=== PATIENT | male | born 1935 | race American Indian/Alaskan Native ===

== ENCOUNTER 2017-04-22 13:04 | Emergency (ER) | payer MEDICARE ==
[2017-04-22 21:13] LABS: ALB/GLOB RATIO 1.3 (1.0-2.1); ALBUMIN 3.8 g/dL (3.5-5.0); ALT/SGPT 25 U/L (21-72); AST/SGOT 26 U/L (17-59); BLOOD UREA NITROGEN 23 mg/dL (9-20); CALCIUM 9.1 mg/dl (8.6-10.4); GFR AFRICAN-AMERICAN > 60; GFR NON-AFRICAN AMERICAN 58
[2017-04-22 21:17] LABS: BASO % 0.7 % (0.0-2.0); EOS # 0.2 K/uL (0.0-0.7); EOS % 3.6 % (0.0-4.0); HEMOGLOBIN 13.5 g/dL (12.0-18.0); LYMPH # 1.3 K/uL (1.0-4.3); LYMPH % 27.9 % (20.0-40.0); MEAN CELL VOLUME 84.3 fL (80.0-94.0); MEAN CORPUSCULAR HEMOGLOBIN 26.8 pg (27.0-31.0); MEAN CORPUSCULAR HGB CONC 31.8 g/dL (33.0-37.0); MEAN PLATELET VOLUME 10.7 fL (7.2-11.7); MONO # 0.5 K/uL (0.0-0.8); MONO % 9.9 % (0.0-10.0); NEUT # 2.8 K/uL (1.8-7.0); NEUT % 57.9 % (50.0-75.0); RBC 5.04 Mil/uL (4.40-5.90); RED CELL DISTRIBUTION WIDTH 15.4 % (11.5-14.5); WHITE BLOOD COUNT 4.8 K/uL (4.8-10.8)
[2017-04-22 23:36] LABS: URINE BILIRUBIN NEGATIVE (NEGATIVE); URINE BLOOD NEGATIVE (NEGATIVE); URINE CLARITY Clear (Clear); URINE COLOR Yellow (YELLOW); URINE GLUCOSE (UA) NORMAL (Normal); URINE LEUKOCYTE ESTERASE NEG Leu/uL (Negative); URINE NITRATE NEGATIVE (NEGATIVE); URINE PROTEIN NEGATIVE (NEGATIVE); URINE UROBILINOGEN NORMAL mg/dL (0.2-1.0)
== END 2017-04-22 19:30 | disposition home or self-care (01) ==
LOC: C.ER 13:04
DX: M54.5 Low back pain (principal)

== ENCOUNTER 2017-10-25 07:28 | Day surgery (SDC) | payer MEDICARE ==
[2017-10-18 09:20] VITALS: BMI 28.2
[2017-10-25] MEDS ORDERED: ceFAZolin IV 1 gm in Dextrose 0 GM/0 ML BAG IVPB ONE (10:22)
[2017-10-25] MEDS ORDERED: Bupivacaine HCl 0.5% PF (10 ml) Inj ONE (10:23)
[2017-10-25] MEDS ORDERED: Lidocaine 2% w Epi 1:100,000 Inj IJ ONE (10:23)
[2017-10-25] MEDS ORDERED: Lactated Ringer's 1,000 ML IV ONE ×3 (10:25→12:16)
[2017-10-25] MEDS ORDERED: Propofol 10 mg/ml Inj (20 ML) ONE (10:39)
[2017-10-25] MEDS: ceFAZolin IV 2 gm in Dextrose 2 GM/50 ML BAG IVPB ONE ×2 (10:40→11:40)
[2017-10-25] MEDS ORDERED: Succinylcholine Chloride 20 mg/ml Syr (5 ml) IV ONE (11:41)
[2017-10-25] MEDS ORDERED: ePHEDrine 50 mg/ml Inj ONE (11:42)
[2017-10-25] MEDS ORDERED: Rocuronium 10 mg/ml (5 ml) ONE (11:42)
[2017-10-25] MEDS ORDERED: Neostigmine Methylsulfate 3mg/3ml Syringe IV ONE (12:04)
[2017-10-25] MEDS ORDERED: HYDROmorphone 0.5 mg/0.5 ml ISec IVP PRN (12:20)
[2017-10-25] MEDS ORDERED: Oxycodone/Acetaminophen 5/325 mg Tab PO PRN (12:22)
--- NOTE | 2017-10-25 12:25 | OP ---
PROCEDURE DATE: 10/25/2017 PREOPERATIVE DIAGNOSIS: Right inguinal hernia. POSTOPERATIVE DIAGNOSIS: Right inguinal hernia. PROCEDURE CARRIED OUT: Repair of right inguinal hernia with PHS Prolene Hernia System. SURGEON: Jose Smyth Jr., MD. DRAFTER ELECTROMECHANICAL: Dr. Josafat Melgar. TYPE OF ANESTHESIA: General anesthesia. ANESTHESIA ADMINISTERED BY: Dr. Cabrera. INDICATIONS: The patient is an older man with a variety of medical problems, who presents with an increasingly symptomatic right inguinal hernia. OPERATIVE FINDINGS: 1. This is primarily a very large indirect inguinal hernia. 2. A PHS Prolene Hernia System was used. DESCRIPTION OF PROCEDURE: The patient was given general anesthesia, intravenous antibiotics, Venodyne boots were applied. Incision was made in the groin exposing the external oblique. The cord and its contents were identified. The sac which was quite large had been dissected away. This was then inverted back into the peritoneal cavity and the PHS Prolene Hernia System was placed in the preperitoneal space. A slit was made. The edges were grasped. It was unfurled appropriately and then it was sutured and stapled into position. The external oblique was closed. The skin was closed with subcuticular closure. Marcaine had been injected right after the beginning of the procedure. Blood loss of the procedure was less than 25 mL. Operation carried out is repair of right indirect right inguinal hernia with PHS Prolene Hernia System. Blood loss is less than 20 mL. Jose Smyth Jr., MD cc: Shauna House MD
--- NOTE | 2017-10-25 12:28 | PCM.SURG1 ---
Surgeon's Initial Post Op Note - Surgeon's Notes Surgeon: Dr. Smyth Lead Generation Representative: Josafat Melgar PGY2 Type of Anesthesia: General Endo Pre-Operative Diagnosis: R inguinal hernia Operative Findings: Large hernia R Post-Operative Diagnosis: Same Operation Performed: R open inguinal hernia repair Specimen/Specimens Removed: None Estimated Blood Loss: EBL {In ML}: 10 Blood Products Given: N/A Drains Used: No Drains Post-Op Condition: Good Date of Surgery/Procedure: 10/25/17 Time of Surgery/Procedure: 12:29
[2017-10-25] MEDS ORDERED: Lactated Ringer's 1,000 ML IV SCH (12:30)
[2017-10-25 14:10] VITALS: TEMP 97.8; O2SAT 96
[2017-10-25 14:53] VITALS: BP 123/62; PULSE 68; RESP 20
== END 2017-10-25 14:45 | disposition home or self-care (01) ==
LOC: C.SDS 07:28
PROVIDERS: ATTEND Surgery Vascular Surgery
DX: K40.90 Unilateral inguinal hernia, without obstruction or gangrene, not specified as recurrent (principal); I10 Essential (primary) hypertension; E11.9 Type 2 diabetes mellitus without complications; Z79.84 Long term (current) use of oral hypoglycemic drugs; Z79.899 Other long term (current) drug therapy
CPT/HCPCS: 49505; 82948; J0690; J1170; J2704; J2710; J3010; J7120

== ENCOUNTER 2018-02-08 21:15 | Emergency (ER) | payer MEDICARE ==
[2018-02-08 21:15] VITALS: BMI 28.2
[2018-02-08 21:32] VITALS: BP 153/100; PULSE 81; RESP 18; TEMP 98.2; O2SAT 99
--- NOTE | 2018-02-08 21:53 | C.PDOC ---
History Of Present Illness 82 year old male presents to ED with complaints of redness and swelling to right side of head for 3 days. He states he fell one month ago hitting his right forehead, near area of swelling. He did not get evaluated at that time, and denies any headache, dizziness, vomiting, vision changes. He denies any pain to site, but states it does feel slightly itchy has been having dry skin. Time Seen by Provider: 02/08/18 21:47 Chief Complaint (Nursing): Abnormal Skin Integrity History Per: Patient History/Exam Limitations: no limitations Onset/Duration Of Symptoms: Days (3) Past Medical History Reviewed: Historical Data, Nursing Documentation, Vital Signs Vital Signs: Last Vital Signs Temp 98.2 F 02/08/18 21:27 Pulse 81 02/08/18 21:27 Resp 18 02/08/18 21:27 BP 153/100 H 02/08/18 21:27 Pulse Ox 99 02/08/18 21:53 - Medical History PMH: Arthritis, Benign Prostatic Hyperplasia, Diabetes, Fractures (RIGHT WRIST- CASTED ONLY), HTN, Hypercholesterolemia, Kidney Stones (SURGERY DONE), Chronic Kidney Disease - [facility] Procedures CLOSURE SKIN & SUBCUTANEOUS NEC (12/16/02) OPEN BIOPSY OF THYROID GLAND (12/16/02) PART THYROIDECTOMY NEC (12/16/02) REMOV INTRALUM PHARYN FB (07/25/13) Family History: States: Unknown Family Hx, Hypertension - Social History Hx Tobacco Use: No Hx Alcohol Use: No Hx Substance Use: No - Immunization History Hx Tetanus Toxoid Vaccination: No Hx Influenza Vaccination: No Hx Pneumococcal Vaccination: No Review Of Systems Except As Marked, All Systems Reviewed And Found Negative. Skin: Positive for: Other (redness) Physical Exam - Physical Exam Appears: Well, Non-toxic, No Acute Distress Skin: Warm, Dry, Other (right lateral face near eyebrow with mild erythema and swelling, no tenderness, no vesicles, no ecchymosis; dry patches of skin around nasiolabial folds, neck and arms) Head: Atraumatic, Normacephalic Eye(s): bilateral: Normal Inspection, EOMI Nose: Normal Oral Mucosa: Moist Lips: Normal Appearing Neck: Normal ROM Cardiovascular: Rhythm Regular Respiratory: Normal Breath Sounds, No Wheezing Extremity: Bilateral: Atraumatic, Normal ROM Neurological/Psych: Oriented x3, Normal Speech, Normal Cranial Nerves, No Cerebellar Signs, Normal Motor, Normal Sensation Gait: Steady ED Course And Treatment O2 Sat by Pulse Oximetry: 99 Medical Decision Making Medical Decision Making: Patient is afebrile appears well nontoxic and in no distress. He is alert and oriented and no neuro deficits. Skin exam shows erythema and mild inflammation, no palpable mass, no abscess, no vesicles. Will treat with Bactrim for early cellulitis. Advise follow up with PMD in 2 days. Disposition Counseled Patient/Family Regarding: Diagnosis, Need For Followup, Rx Given - Disposition Referrals: Suraj House MD [Primary Care Provider] - Disposition: HOME/ ROUTINE Disposition Time: 22:03 Condition: GOOD Additional Instructions: take antibiotic twice a day follow up with your doctor in 2 days to check area return to ER if you develop fever, pain, redness, swelling or area spreads Prescriptions: Sulfamethoxazole/Trimethoprim [Bactrim DS 800 mg-160 mg] 1 tab PO BID #14 tab Instructions: Cellulitis (Skin Infection), Adult (DC) Forms: [employer] (Spanish) - POA Present On Arrival: None - Clinical Impression Clinical Impression: Cellulitis
[2018-02-08] MEDS ORDERED: Tmp-Smz 800 mg-160 mg DS Tab PO SCH (22:00)
[2018-02-08] MEDS ORDERED: Tmp-Smz 800 mg-160 mg DS Tab ONE (22:06)
== END 2018-02-08 22:24 | disposition home or self-care (01) ==
LOC: SUPCPDRO 21:15 → C.ER 21:15
DX: L03.211 Cellulitis of face (principal)

== ENCOUNTER 2018-02-10 12:02 | Emergency (ER) | payer MEDICARE ==
[2018-02-10 12:02] VITALS: BMI 28.2
[2018-02-10 12:14] VITALS: RESP 16; O2SAT 98
--- NOTE | 2018-02-10 13:37 | CT ---
PROCEDURE: CT ORBITS WITHOUT CONTRAST. HISTORY: s/p fall - r/o right orbital fx COMPARISON: None available. TECHNIQUE: Axial CT images of the orbits were obtained. Coronal and sagittal reformats were generated. Radiation dose: Total exam DLP = 675.64 mGy-cm. This CT exam was performed using one or more of the following dose reduction techniques: Automated exposure control, adjustment of the mA and/or kV according to patient size, and/or use of iterative reconstruction technique. FINDINGS: RIGHT ORBIT: RIGHT BONY ORBIT: Normal. RIGHT INTRAORBITAL STRUCTURES: Globe: Normal. Extraocular muscles: Normal. Post septal space: Normal. Optic Nerve: Normal. Lacrimal Apparatus: Normal. RIGHT PRESEPTAL SOFT TISSUES: [id number] right preseptal air periorbital soft tissue edema is identified predominantly laterally with both superior inferior mild edema appreciated. No retained radiodense foreign body or emphysema soft tissue changes are are identified. LEFT ORBIT: LEFT BONY ORBIT: Normal. LEFT INTRAORBITAL STRUCTURES: Globe: Normal. Extraocular muscles: Normal. Post septal space: Normal Optic Nerve: Normal. . Lacrimal Apparatus: Normal. LEFT PRESEPTAL SOFT TISSUES: Normal. OTHER: Limited heterotopic linear calcification is seen inferior to the anetroinferior maxillary ridge within anterior soft palate, favored over possible chip fracture. Clinically correlate. Incidental questionable mild lymphadenopathy in the suprahyoid neck. IMPRESSION: [id number] right periorbital soft tissue edema which is preseptal with no postseptal changes. No fracture of the bony orbit is appreciated bilaterally. Incidental heterotopic calcifications seen medially inferior to anterior inferior maxillary rage, favored over trace avulsion or chip fracture fracture. Incidental mild suprahyoid neck lymphadenopathy questioned.
[2018-02-10 14:08] VITALS: BP 122/78; PULSE 70; TEMP 98
--- NOTE | 2018-02-10 18:11 | C.PDOC ---
History Of Present Illness 82 year old male presents to the ED with c/o mild right eye swelling which progressed over the past couple weeks. Patient states he fell two weeks ago, denies LOC at the time. He was evaluated in this ED and discharged with Rx for antibiotics for cellulitis, which patient states has been resolving. He denies fever, chills and vision change. Chief Complaint (Nursing): Abnormal Skin Integrity History Per: Patient History/Exam Limitations: no limitations Onset/Duration Of Symptoms: Other (2 weeks ) Current Symptoms Are (Timing): Still Present Quality Of Symptoms: Swollen Additional History Per: Patient Past Medical History Reviewed: Historical Data, Nursing Documentation, Vital Signs Vital Signs: Last Vital Signs Temp 98.0 F 02/10/18 14:00 Pulse 70 02/10/18 14:00 Resp 16 02/10/18 14:00 BP 122/78 02/10/18 14:00 Pulse Ox 98 02/10/18 18:17 - Medical History PMH: Arthritis, Benign Prostatic Hyperplasia, Diabetes, Fractures (RIGHT WRIST- CASTED ONLY), HTN, Hypercholesterolemia, Kidney Stones (SURGERY DONE), Chronic Kidney Disease Surgical History: No Surg Hx - [facility] Procedures CLOSURE SKIN & SUBCUTANEOUS NEC (12/16/02) OPEN BIOPSY OF THYROID GLAND (12/16/02) PART THYROIDECTOMY NEC (12/16/02) REMOV INTRALUM PHARYN FB (07/25/13) Family History: States: Hypertension - Social History Hx Tobacco Use: No Hx Alcohol Use: No Hx Substance Use: No - Immunization History Hx Tetanus Toxoid Vaccination: No Hx Influenza Vaccination: No Hx Pneumococcal Vaccination: No Review Of Systems Constitutional: Negative for: Fever, Chills Eyes: Positive for: Other (mild right eye swelling ). Negative for: Vision Change Physical Exam - Physical Exam Appears: Non-toxic, No Acute Distress Skin: Normal Color, Warm, Dry Head: Other (minimal swelling and tenderness to lateral aspect of right orbital region ) Eye(s): bilateral: PERRL, EOMI Oral Mucosa: Moist Neck: Supple Chest: Symmetrical, No Deformity, No Tenderness Cardiovascular: Rhythm Regular, No Murmur Respiratory: Normal Breath Sounds, No Rales, No Rhonchi, No Wheezing Extremity: Normal ROM, Capillary Refill (less than 2 seconds ) Neurological/Psych: Oriented x3, Normal Speech, Normal Cognition ED Course And Treatment O2 Sat by Pulse Oximetry: 98 (on RA) Pulse Ox Interpretation: Normal Medical Decision Making Medical Decision Making: Impression: 82 y/o male with right eye swelling Plan: * CT Orbits/Facial * EKG * reassess and disposition Progress: CT Orbits/Facial and EKG ordered and reviewed. Disposition - Disposition Referrals: Efraín Riley, [Non-Staff] - Disposition: HOME/ ROUTINE Disposition Time: 13:40 Condition: GOOD Additional Instructions: Thank you for letting us take care of you today. The emergency medical care you received today was directed at your acute symptoms. If you were prescribed any medication, please fill it and take as directed. It may take several days for your symptoms to resolve. Return to the Emergency Department if your symptoms worsen, do not improve, or if you have any other problems. Please contact your doctor or call one of the physicians/clinics you have been referred to that are listed on the Patient Visit Information form that is included in your discharge packet. Bring any paperwork you were given at discharge with you along with any medications you are taking to your follow up visit. Our treatment cannot replace ongoing medical care by a primary care provider (PCP) outside of the emergency department. Thank you for allowing the [facility] team to be part of your care today. Continue taking the antibiotics as prescribed. Follow up with your primary doctor in 2 days for re-evaluation and further management. Instructions: [place] (DC) Forms: [employer] (Japanese) - Clinical Impression Clinical Impression: Contusion - Scribe Statement The provider has reviewed the documentation as recorded by the Scribe (Kalpana House) Provider Attestation: All medical record entries made by the Scribe were at my direction and personally dictated by me. I have reviewed the chart and agree that the record accurately reflects my personal performance of the history, physical exam, medical decision making, and the department course for this patient. I have also personally directed, reviewed, and agree with the discharge instructions and disposition.
== END 2018-02-10 14:07 | disposition home or self-care (01) ==
LOC: C.ER 12:02
DX: S05.11XA Contusion of eyeball and orbital tissues, right eye, initial encounter (principal); W19.XXXA Unspecified fall, initial encounter; E78.00 Pure hypercholesterolemia, unspecified; N40.0 Benign prostatic hyperplasia without lower urinary tract symptoms; I12.9 Hypertensive chronic kidney disease with stage 1 through stage 4 chronic kidney disease, or unspecified chronic kidney disease; N18.9 Chronic kidney disease, unspecified

== ENCOUNTER 2018-03-04 08:28 | Emergency (ER) | payer MEDICARE ==
[2018-03-04 08:28] VITALS: BMI 28.2
[2018-03-04 08:33] VITALS: BP 155/80; PULSE 74; RESP 18; TEMP 98.1; O2SAT 100
--- NOTE | 2018-03-04 08:47 | C.PDOC ---
Time Seen by Provider: 03/04/18 08:36 Chief Complaint (Nursing): Abnormal Skin Integrity History Per: Patient Onset/Duration Of Symptoms: Days (about 1 week) Current Symptoms Are (Timing): Still Present Location Of Injury: Anterior: Perineum (Penis) Quality Of Symptoms: Itching. denies: Painful Severity: Moderate Additional History Per: Prior Records Past Medical History Reviewed: Historical Data, Nursing Documentation, Vital Signs Vital Signs: Last Vital Signs Temp 98.1 F 03/04/18 08:31 Pulse 74 03/04/18 08:31 Resp 18 03/04/18 08:31 BP 155/80 H 03/04/18 08:31 Pulse Ox 100 03/04/18 08:31 - Medical History PMH: Arthritis, Benign Prostatic Hyperplasia, Diabetes, Fractures (RIGHT WRIST- CASTED ONLY), HTN, Hypercholesterolemia, Kidney Stones (SURGERY DONE), Chronic Kidney Disease - [facility] Procedures CLOSURE SKIN & SUBCUTANEOUS NEC (12/16/02) OPEN BIOPSY OF THYROID GLAND (12/16/02) PART THYROIDECTOMY NEC (12/16/02) REMOV INTRALUM PHARYN FB (07/25/13) Family History: States: Unknown Family Hx, Hypertension - Social History Hx Tobacco Use: No Hx Alcohol Use: Yes Hx Substance Use: No - Immunization History Hx Tetanus Toxoid Vaccination: No Hx Influenza Vaccination: No Hx Pneumococcal Vaccination: No Review Of Systems Except As Marked, All Systems Reviewed And Found Negative. Constitutional: Negative for: Fever, Weakness Cardiovascular: Negative for: Chest Pain Respiratory: Negative for: Shortness of Breath Gastrointestinal: Negative for: Vomiting, Abdominal Pain Genitourinary: Positive for: Rash. Negative for: Dysuria, Penile Discharge, Scrotal Pain Musculoskeletal: Negative for: Neck Pain, Back Pain Neurological: Negative for: Weakness, Numbness Physical Exam - Physical Exam Appears: Non-toxic, No Acute Distress Skin: Normal Color, Warm, Dry Head: Atraumatic, Normacephalic Eye(s): bilateral: PERRL, EOMI Neck: Normal ROM, Supple Male Genital: No Testicular Tenderness, No Testicular Swelling, No Inguinal Tenderness, No Inguinal Swelling, No Scrotal Swelling, Other (Mild erythema/ irritation under foreskin and on prepuse) Extremity: Normal ROM Neurological/Psych: Oriented x3, Normal Motor, Normal Sensation ED Course And Treatment O2 Sat by Pulse Oximetry: 100 Pulse Ox Interpretation: Normal Disposition Counseled Patient/Family Regarding: Diagnosis, Need For Followup, Rx Given - Disposition Disposition: HOME/ ROUTINE Disposition Time: 08:46 Condition: STABLE Additional Instructions: Follow up with your doctor. Return to the ER if you develop fever, trouble urinating, testicle pain or swelling, worsening of symptoms or if you have any other concerns. Prescriptions: Clotrimazole 1% Cream [Lotrimin 1%] 1 applic TOP BID #1 tube Instructions: Luzmaria RAMIRES) - Clinical Impression Clinical Impression: Luzmaria
== END 2018-03-04 09:04 | disposition home or self-care (01) ==
LOC: C.ER 08:28
DX: N48.1 Balanitis (principal)

== ENCOUNTER 2018-03-07 19:29 | Emergency (ER) | payer MEDICARE ==
[2018-03-07 19:29] VITALS: BMI 28.2
[2018-03-07 19:42] VITALS: BP 145/84; PULSE 84; RESP 16; TEMP 98; O2SAT 99
--- NOTE | 2018-03-07 21:26 | C.PDOC ---
History Of Present Illness 82 y/o male, seen in ed 3 day ago, c/o bleeding from penis head today. pt has been using cream prescribed the other day for a yeast infection. denies urinary symptoms. Time Seen by Provider: 03/07/18 20:45 Chief Complaint (Nursing): Male Genitourinary History Per: Patient History/Exam Limitations: no limitations Onset/Duration Of Symptoms: Days (1) Current Symptoms Are (Timing): Gone Associated Symptoms: denies: Nausea, Vomiting, Urinary Symptoms Past Medical History Reviewed: Historical Data, Nursing Documentation, Vital Signs Vital Signs: Last Vital Signs Temp 98 F 03/07/18 19:34 Pulse 84 03/07/18 19:34 Resp 16 03/07/18 19:34 BP 145/84 03/07/18 19:34 Pulse Ox 99 03/10/18 11:12 - Medical History PMH: Arthritis, Benign Prostatic Hyperplasia, Diabetes, Fractures (RIGHT WRIST- CASTED ONLY), HTN, Hypercholesterolemia, Kidney Stones (SURGERY DONE), Chronic Kidney Disease - [facility] Procedures CLOSURE SKIN & SUBCUTANEOUS NEC (12/16/02) OPEN BIOPSY OF THYROID GLAND (12/16/02) PART THYROIDECTOMY NEC (12/16/02) REMOV INTRALUM PHARYN FB (07/25/13) Family History: States: Unknown Family Hx, Hypertension - Social History Hx Tobacco Use: No Hx Alcohol Use: Yes Hx Substance Use: No - Immunization History Hx Tetanus Toxoid Vaccination: No Hx Influenza Vaccination: No Hx Pneumococcal Vaccination: No Review Of Systems Constitutional: Negative for: Fever, Chills Gastrointestinal: Negative for: Vomiting, Abdominal Pain Genitourinary: Positive for: Penile Pain, Other (bleeding at head of penis per pt). Negative for: Dysuria, Frequency Skin: Positive for: Other (redness to penis) Physical Exam - Physical Exam Appears: Non-toxic, No Acute Distress Skin: Warm, Dry Gastrointestinal/Abdominal: Bowel Sounds, Soft, No Tenderness, No Distention, No Guarding, No Rebound Male Genital: No Testicular Tenderness, No Testicular Swelling, No Circumcised, Other (easily retracted foreskin, areas of erythema to head of penis, no bleeding noted) Neurological/Psych: Oriented x3, Normal Speech, Normal Cognition ED Course And Treatment O2 Sat by Pulse Oximetry: 99 Medical Decision Making Medical Decision Making: no bleeding noted at meatus, foreskin easily retracted, areas of erythema to head of penis, non tender, skin intact., d/c home. f/u urology Disposition Counseled Patient/Family Regarding: Diagnosis, Need For Followup - Disposition Disposition: HOME/ ROUTINE Disposition Time: 21:27 Condition: GOOD Additional Instructions: Please continue using cream prescribed (clotrimazole) on your penis. Please follow up with urologist, Dr Weeks- or your own urologist. Call for soonest appointment. Return for any worse pain. swelling or penile discomfort. Instructions: Luzmaria (DONAVAN) Forms: [facility] (Eth[place]ian), General Discharge Instructions - Clinical Impression Clinical Impression: Luzmaria
== END 2018-03-07 21:35 | disposition home or self-care (01) ==
LOC: C.ER 19:29
DX: N48.1 Balanitis (principal)

== ENCOUNTER 2018-05-27 19:41 | Inpatient (IN) | payer MEDICARE ==
[2018-05-27 19:41] VITALS: BMI 28.2
[2018-05-27] MEDS ORDERED: Iohexol 240 (50 ml) PO STA (20:33)
--- NOTE | 2018-05-27 20:34 | C.PDOC ---
"History Of Present Illness 82 year old male presents to the ED c/o abdominal bloating. Patient reports that for the last couple of months he has been having decreased appetite. Patient eats and his belly feels bloated and has no appetite. Patient states his bowel movements are occasionally hard, but he is able to go and urinate normally. Patient reports that he has 10 pound weight loss in the last couple of months as well. Patient became concerned about his abdominal bloating and loss of appetite. Patient denies fever, chills, nausea, vomit, cough, URI symptoms, recent travel, sick contacts. Time Seen by Provider: 05/27/18 20:24 Chief Complaint (Nursing): Abdominal Pain History Per: Patient History/Exam Limitations: no limitations Onset/Duration Of Symptoms: Days Current Symptoms Are (Timing): Still Present Context: Food Location Of Pain/Discomfort: Diffuse Radiation Of Pain To:: None Quality Of Discomfort: Other (bloating) Associated Symptoms: Loss Of Appetite. denies: Nausea, Vomiting, Diarrhea Exacerbating Factors: Food Alleviating Factors: None Recent travel outside of the [place]: No Additional History Per: Patient Past Medical History Reviewed: Historical Data, Nursing Documentation, Vital Signs Vital Signs: Last Vital Signs Temp 98.3 F 05/27/18 19:49 Pulse 75 05/27/18 19:49 Resp 18 05/27/18 19:49 BP 153/82 H 05/27/18 19:49 Pulse Ox 97 05/27/18 22:45 - Medical History PMH: Arthritis, Benign Prostatic Hyperplasia, Diabetes, Fractures (RIGHT WRIST- CASTED ONLY), HTN, Hypercholesterolemia, Kidney Stones (SURGERY DONE), Chronic Kidney Disease Surgical History: No Surg Hx - [facility] Procedures CLOSURE SKIN & SUBCUTANEOUS NEC (12/16/02) OPEN BIOPSY OF THYROID GLAND (12/16/02) PART THYROIDECTOMY NEC (12/16/02) REMOV INTRALUM PHARYN FB (07/25/13) Family History: States: Unknown Family Hx, Hypertension - Social History Hx Tobacco Use: No Hx Alcohol Use: No Hx Substance Use: No - Immunization History Hx Tetanus Toxoid Vaccination: No Hx Influenza Vaccination: No Hx Pneumococcal Vaccination: No Review Of Systems Constitutional: Positive for: Weight loss. Negative for: Fever, Chills Cardiovascular: Negative for: Chest Pain Respiratory: Negative for: Cough, Shortness of Breath Gastrointestinal: Positive for: Abdominal Pain. Negative for: Nausea, Vomiting , Diarrhea Genitourinary: Negative for: Dysuria Musculoskeletal: Negative for: Back Pain Skin: Negative for: Rash Neurological: Negative for: Weakness, Numbness Physical Exam - Physical Exam Appears: Non-toxic, No Acute Distress Skin: Normal Color, Warm, Dry Head: Atraumatic, Normacephalic Eye(s): bilateral: Normal Inspection Oral Mucosa: Moist Neck: Normal ROM, Supple Chest: Symmetrical Cardiovascular: Rhythm Regular Respiratory: Normal Breath Sounds, No Rales, No Rhonchi, No Wheezing Gastrointestinal/Abdominal: Soft, No Tenderness, No Guarding, No Rebound Extremity: Normal ROM, No Tenderness, No Swelling Neurological/Psych: Oriented x3, Normal Speech, Normal Cognition Gait: Steady ED Course And Treatment - Laboratory Results Result Diagrams: 05/27/18 17:11 05/27/18 17:11 Lab Interpretation: Abnormal (Lipase 1206) O2 Sat by Pulse Oximetry: 97 (ON RA) Pulse Ox Interpretation: Normal - CT Scan/US CT abd/pelvis Other Rad Studies (CT/US): Read By Radiologist, Radiology Report Reviewed CT/US Interpretation: EXAM: CT Abdomen and Pelvis With Intravenous Contrast. EXAM DATE/TIME: 05/27/2018 8:33 PM. CLINICAL HISTORY: 82 years old, male; Generalized abdominal pain. TECHNIQUE: Axial computed tomography images of the abdomen and pelvis with intravenous contrast. All CT scans at this facility use at least one of these dose optimization techniques: automated. exposure control; mA and/or kV adjustment per patient size (includes targeted exams where dose is. matched to clinical indication); or iterative reconstruction. Coronal and sagittal reformatted images were created and reviewed. COMPARISON: Report from the prior CT scan of the abdomen and pelvis dated 06/09/15 is available but the images. are not. FINDINGS: Lower thorax: Small dependent atelectasis is noted at the lung bases. Focal pleural thickening. adjacent to the right middle lobe. The coronary arteries are calcified. Contrast air levels in the main. pulmonary artery. 4.2 CM dilatation of the ascending aorta. ABDOMEN: Liver: 3-4 mm tiny hypoattenuation in the posterior right hepatic lobe near the dome. Subtle 1 CM. hypoattenuation lesion in the left hepatic lobe near the falciform ligament ( series 3 image 40). Gallbladder and bile ducts: No gallstone or biliary dilatation. Pancreas: 5 mm small fat attenuation lesion in the pancreatic head. Spleen: Normal. No splenomegaly. Adrenals: Normal. No mass. Kidneys and ureters: Bilateral renal cysts measuring up to 2 CM. No hydronephrosis. Stomach and bowel: Air-fluid levels are noted in the colon. No bowel obstruction. IRIS ROMERO | Preliminary Radiology Report. CONFIDENTIALITY STATEMENT. This report is intended only for the use of the referring physician, and only in accordance with law, If you received this in error, call [phone]. Page 2 of 2. Appendix: A normal caliber appendix is visualized. PELVIS: Bladder: Lobular, enlarged prostate gland measures 6.2 CM in transverse. Symmetric seminal. vesicles. Reproductive: Mass effect on the base of the bladder from the prostate enlargement. No bladder. calculus. ABDOMEN and PELVIS: Intraperitoneal space: Normal. No free air. No significant fluid collection. Bones/joints: Degenerative spurs in the thoracic spine. Bony ankylosis of the SI joints. Soft tissues: Surgical clips and incisional scar in the right inguinal region. Small umbilical and left. inguinal hernias containing fat. Vasculature: There are calcifications of the aorta and its branches. No abdominal aortic aneurysm. The. Lymph nodes: Normal. No enlarged lymph nodes. IMPRESSION: 1. Air-fluid levels in the colon. Correlate with history of diarrhea. 2. 4.2 CM ascending aortic aneurysm. Coronary artery calcifications. 3. 1 CM hypoattenuation lesion in the left hepatic lobe near the falciform ligament. Hepatic tumor or. focal area of fatty infiltration. Recommend comparison with prior study. 4. Enlarged, lobular prostate gland, described on the prior report. 5. Renal and hepatic cysts. Thank you for allowing us to participate in the care of your patient. Dictated and Authenticated by: Jeremi Adkins MD. 05/27/2018 10:44 PM Eastern Time ([place] & [place]) - Physician Consult Information Time Consulting Physician Contacted: 22:50 Physician Contacted: Suraj House Outcome Of Conversation: Patient to be admitted for management of pancreatitis. Medical Decision Making Medical Decision Making: Impression: abdominal bloating, loss of appetite Plan: * CT abd/pelvis * Labs * UA Disposition - Disposition Disposition: HOSPITALIZED Disposition Time: 22:50 Condition: STABLE - POA Present On Arrival: None - Clinical Impression Clinical Impression: Appetite loss, Pancreatitis, acute - Scribe Statement The provider has reviewed the documentation as recorded by the Scribe Kolby Pruitt All medical record entries made by the Scribe were at my direction and personally dictated by me. I have reviewed the chart and agree that the record accurately reflects my personal performance of the history, physical exam, medical decision making, and the department course for this patient. I have also personally directed, reviewed, and agree with the discharge instructions and disposition."
[2018-05-27] MEDS ORDERED: Iohexol 240 (50 ml) ONE (20:41)
[2018-05-27 20:51] LABS: BASO % 0.8 % (0.0-2.0); EOS # 0.1 K/uL (0.0-0.7); EOS % 2.2 % (0.0-4.0); HEMOGLOBIN 12.6 g/dL (12.0-18.0); LYMPH # 1.5 K/uL (1.0-4.3); LYMPH % 29.3 % (20.0-40.0); MEAN CELL VOLUME 84.1 fL (80.0-94.0); MEAN CORPUSCULAR HEMOGLOBIN 27.2 pg (27.0-31.0); MEAN CORPUSCULAR HGB CONC 32.3 g/dL (33.0-37.0); MEAN PLATELET VOLUME 10.3 fL (7.2-11.7); MONO # 0.4 K/uL (0.0-0.8); MONO % 7.7 % (0.0-10.0); NEUT # 3.1 K/uL (1.8-7.0); NRBC % 0.1 % (0.0-2.0); RBC 4.62 Mil/uL (4.40-5.90); RED CELL DISTRIBUTION WIDTH 14.8 % (11.5-14.5); WHITE BLOOD COUNT 5.2 K/uL (4.8-10.8)
[2018-05-27 21:07] LABS: ALB/GLOB RATIO 1.6 (1.0-2.1); ALBUMIN 3.8 g/dL (3.5-5.0); ALT/SGPT 36 U/L (21-72); AST/SGOT 25 U/L (17-59); BLOOD UREA NITROGEN 17 mg/dL (9-20); CALCIUM 9.5 mg/dl (8.6-10.4); GFR AFRICAN-AMERICAN > 60; GFR NON-AFRICAN AMERICAN 58; LIPASE 1206 U/L (23-300)
[2018-05-27 21:42] LABS: SQUAMOUS EPITHIAL < 1 /hpf (0-5); URINE BILIRUBIN NEGATIVE (NEGATIVE); URINE BLOOD NEGATIVE (NEGATIVE); URINE CLARITY Clear (Clear); URINE COLOR Yellow (YELLOW); URINE GLUCOSE (UA) NORMAL (Normal); URINE LEUKOCYTE ESTERASE NEG Leu/uL (Negative); URINE PROTEIN NEGATIVE (NEGATIVE); URINE UROBILINOGEN NORMAL mg/dL (0.2-1.0)
[2018-05-28] MEDS: Dextrose 5%/0.45% NS 1,000 ML IV SCH ×2 (00:37→20:36)
[2018-05-28 00:56] VITALS: RESP 20
[2018-05-28] MEDS ORDERED: Bismuth Subsalicylate 262 mg/15 ml Sus (240 ml) PO ONE (04:12)
[2018-05-28 07:22] LABS: AMYLASE 107 U/L (30-110); LIPASE 168 U/L (23-300)
[2018-05-28] MEDS ORDERED: (Novolog) Insulin Aspart, Recombinant 100 u/ml 10 ml vial SC SCH (07:30)
--- NOTE | 2018-05-28 09:12 | CP.PCM.PN ---
Subjective - Date & Time of Evaluation Date of Evaluation: 05/28/18 Time of Evaluation: 07:00 - Subjective Subjective: PGY2- Progress Note for Dr. House Patient seen and examined at bedside. Patient in no acute distress. Patient says for the past two months his appetite has significantly decreased and he has had unintentional weight loss. Patient says he has no pain with eating. Patient has not noticed any changes in his bowel movements. Patient had a colonoscopy about 5 years ago. Patient denies any blood in the stool or urine. Patient has not been having any fevers, night sweats, cough, shortness of breath , chest pain, abdominal pain, nausea, vomiting, diarrhea, or constipation. PMHx: HTN, DMII, Lupus, BPH Social: denies tobacco and drugs, drinks about 1 budlight every 2 weeks Objective - Vital Signs/Intake and Output Vital Signs (last 24 hours): Temp Pulse Resp BP Pulse Ox 97.4 F L 61 20 178/85 H 98 05/28/18 07:00 05/28/18 07:00 05/28/18 07:00 05/28/18 07:00 05/28/18 07:00 Intake and Output: 05/28/18 05/28/18 06:59 18:59 Intake Total 400 Balance 400 - Medications Medications: Current Medications Ferrous Sulfate (Feosol) 325 mg PO DAILY [facility] Finasteride (Proscar) 5 mg PO DAILY [facility] Folic Acid (Folic Acid) 1 mg PO DAILY [facility] Glipizide (Glucotrol) 10 mg PO DAILY [facility] Home Med (Losartan/Hydrochlorothiazide [Losartan-Hctz 50-12.5 Mg Tab]) 1 tab PO DAILY [facility] Home Med (Simvastatin [Zocor]) 40 mg PO HS [facility] Hydroxychloroquine Sulfate (Plaquenil) 200 mg PO BID [facility] PRN Reason: Protocol Dextrose/Sodium Chloride (Dextrose 5%/0.45% Ns 1000 Ml) 1,000 mls @ 50 mls/hr IV .Q20H [facility] Last Admin: 05/28/18 00:37 Dose: 50 mls/hr Insulin Aspart (Novolog) 1 unit SC ACHS [facility] PRN Reason: Protocol Last Admin: 05/28/18 07:35 Dose: Not Given Pantoprazole Sodium (Protonix Ec Tab) 40 mg PO DAILY [facility] Pneumococcal Polyvalent Vaccine (Pneumovax 23 Vaccine) 0.5 ml IM .ONCE ONE Stop: 05/29/18 10:01 Tamsulosin HCl (Flomax) 1 mg PO DAILY [facility] - Labs Labs: 05/27/18 17:11 05/27/18 17:11 Assessment and Plan - Assessment and Plan (Free Text) Assessment: Pancreatitis, resolved Lipase 1206 on admission 05/28/18: lipase 168 heart healthy moderate consistent carb diet Decreased Appetite/ Unintentional Weight loss colonoscopy done [address] abd/ pelvis: small dependent atelectasis at lung bases, focal pleural thickening. 4.2 cm ascending aortic aneurysm 1cm hypoattenuated lesion of L hepatic lobe near falciform ligament. hepatic tumor or fatty infiltration. enlarged lobulated prostate. renal and hepatic cysts. GI, Dr. Henao, consulted- help appreciated Liver Tumor or Fatty Infiltrate found on CT abd/ pelvis GI, Dr. Henao, consulted- help appreciated HTN Losartan 50mg po daily HCTZ 12.5 mg po daily DMII Glipizide 10mg po daily ISS- Low Accuchecks achs hypoglycemia protocol HLD Zocor NF Crestor 10mg po daily Lupus Plaquenil 200mg po BID BPH Flomax .8mg po daily enlarged lobulated prostate Thrombocytopenia Platelets: 69 Heme, Onc, Dr. Paul consulted avoid medications that can cause thrombocytopenia Prophylaxis no chemical VTE prophylaxis 2/2 low platelets SCDs
[2018-05-28] MEDS ORDERED: HYDROCHLOROTHIAZIDE PO SCH (10:00)
[2018-05-28] MEDS ORDERED: LOSARTAN PO SCH (10:00)
[2018-05-28] MEDS ORDERED: Enoxaparin 40 mg Syringe SC SCH (10:00)
[2018-05-28] MEDS: Pantoprazole 40 mg EC Tab PO SCH (10:04)
--- NOTE | 2018-05-28 11:07 | CT ---
Date of service: 05/27/2018 PROCEDURE: CT Abdomen and Pelvis with contrast HISTORY: abd pain COMPARISON: 06/09/2015 TECHNIQUE: Contrast dose: 100 mL Visipaque 320 Radiation dose: Total exam DLP = 1301.18 mGy-cm. This CT exam was performed using one or more of the following dose reduction techniques: Automated exposure control, adjustment of the mA and/or kV according to patient size, and/or use of iterative reconstruction technique. FINDINGS: LOWER THORAX: No infiltrate. There is a 1.3 cm focal area of pleural thickening in the right anterior reinier thorax common nonspecific. Followup advised. LIVER: Normal size, contour and attenuation. There is a somewhat bandlike area of diminished attenuation adjacent to the ligamentum teres unchanged from 06/09/2015. Not suspicious for neoplasm. Possible focal fatty infiltration. No biliary ductal dilatation. Stable 7 mm low-attenuation lesion at the dome of the right hepatic lobe. GALLBLADDER AND BILE DUCTS: Unremarkable. 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 No new pancreatic mass. No pancreatic ductal dilatation. SPLEEN: Unremarkable. ADRENALS: Unremarkable KIDNEYS AND URETERS: Bilateral renal cysts. Please note that a low-density lesion in the mid left kidney has increased mildly in size compared to the prior. Previously 15 mm common now 18 mm and measuring 23 Hounsfield units. Consider correlation with ultrasound. Additional bilateral renal cysts are noted. No calculus. No hydronephrosis. Please note that a previously identified left upper pole exophytic cortical cyst is no longer evident. VASCULATURE: 4.4 cm aneurysmal dilatation of the ascending thoracic aorta. No evidence of abdominal aortic aneurysm. BOWEL: Unremarkable. No obstruction. No gross mural thickening. APPENDIX: Normal appendix. PERITONEUM: No ascites. Evidence of prior right inguinal herniorrhaphy. LYMPH NODES: Unremarkable. No enlarged lymph nodes. BLADDER: Unremarkable. REPRODUCTIVE: Enlarged prostate. BONES: No acute fracture. OTHER FINDINGS: None. IMPRESSION: No acute abnormality. Aneurysmal dilatation of the ascending thoracic aorta. No abnormality of the bowel is appreciated. Enlarged prostate. Bilateral renal cysts. There is slight enlargement of a mid left renal cortical cyst with slightly increased attenuation. Recommend correlation with renal ultrasound. 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 Additional minor findings as above. The preliminary findings for this examination were reported by [facility] at 10:44 p.m. on 05/27/2018. There is concurrence of this report with the preliminary findings.
[2018-05-28] MEDS: (Novolin R) Insulin Human Regular 100 units/ml vial SC SCH ×3 (11:51→22:10)
--- NOTE | 2018-05-28 19:22 | CP.PCM.HP ---
Past Patient History - Infectious Disease Hx of Infectious Diseases: None - Past Medical History & Family History Past Medical History?: Yes - Past Social History Smoking Status: Never Smoked - CARDIAC Hx Hypercholesterolemia: Yes Hx Hypertension: Yes - PULMONARY Hx Respiratory Disorders: No - NEUROLOGICAL Hx Neurological Disorder: No - HEENT Hx HEENT Problems: No - RENAL Hx Chronic Kidney Disease: Yes Hx Kidney Stones: Yes (SURGERY DONE) - ENDOCRINE/METABOLIC Hx Endocrine Disorders: Yes Hx Diabetes Mellitus Type 2: Yes (BUT WELL CONTROLED-SO ONLY TAKES MED. READING ABOVE 150) Hx Systemic Lupus Erythematosus: Yes Other/Comment: HX: "PARTIAL(RIGHT) THYROID REMOVED AFTER AN ACCIDENT." - HEMATOLOGICAL/ONCOLOGICAL Hx Blood Disorders: Yes Other/Comment: LUPUS - INTEGUMENTARY Hx Dermatological Problems: No - MUSCULOSKELETAL/RHEUMATOLOGICAL Hx Arthritis: Yes Hx Falls: No Hx Fractures: Yes (RIGHT WRIST-CASTED ONLY) - GASTROINTESTINAL Hx Gastrointestinal Disorders: No - GENITOURINARY/GYNECOLOGICAL Hx Genitourinary Disorders: Yes Hx Prostate Problems: Yes - PSYCHIATRIC Hx Substance Use: No - SURGICAL HISTORY Hx Surgeries: Yes Hx Herniorrhaphy: Yes (6 months ago) Hx Thyroidectomy: Yes ("PARTIAL (RIGHT) THYROID REMOVED AFTER AN ACCIDENY") Other/Comment: HX: CYSTOSCOPY " TO CHECK PROSTATE AND REMOVE KIDNEY STONE." - ANESTHESIA Hx Anesthesia: Yes Hx Anesthesia Reactions: No Hx Malignant Hyperthermia: No Has any member of the family had a problem w/ anesthesia?: No Meds Allergies/Adverse Reactions: Allergies Allergy/AdvReac Type Severity Reaction Status Date / Time No Known Allergies Allergy Verified 05/27/18 19:47 Physical Exam - Constitutional Appears: Well - Head Exam Head Exam: ATRAUMATIC, NORMAL INSPECTION, NORMOCEPHALIC - Eye Exam Eye Exam: EOMI, Normal appearance, PERRL Pupil Exam: NORMAL ACCOMODATION, PERRL - ENT Exam ENT Exam: Mucous Membranes Moist, Normal Exam - Neck Exam Neck exam: Positive for: Normal Inspection - Respiratory Exam Respiratory Exam: Decreased Breath Sounds - Cardiovascular Exam Cardiovascular Exam: REGULAR RHYTHM, +S1, +S2 - GI/Abdominal Exam GI & Abdominal Exam: Diminished Bowel Sounds, Soft - Rectal Exam Rectal Exam: Deferred Results - Vital Signs Recent Vital Signs: Last Vital Signs Temp 97.9 F 05/28/18 15:00 Pulse 68 05/28/18 15:00 Resp 20 05/28/18 15:00 BP 133/84 05/28/18 15:00 Pulse Ox 98 05/28/18 15:00 - Labs Result Diagrams: 05/27/18 17:11 05/27/18 17:11 Labs: Laboratory Results - last 24 hr 05/27/18 05/27/18 05/27/18 17:11 17:11 21:32 WBC 5.2 RBC 4.62 Hgb 12.6 Hct 38.9 MCV 84.1 MCH 27.2 MCHC 32.3 L RDW 14.8 H Plt Count 69 L MPV 10.3 Neut % (Auto) 60.0 Lymph % (Auto) 29.3 [place] % (Auto) 7.7 Eos % (Auto) 2.2 Baso % (Auto) 0.8 Neut # (Auto) 3.1 Lymph # (Auto) 1.5 [place] # (Auto) 0.4 Eos # (Auto) 0.1 Baso # (Auto) 0.0 Sodium 141 Potassium 3.7 Chloride 105 Carbon Dioxide 31 H Anion Gap 8 L BUN 17 Creatinine 1.2 Est GFR ( Amer) > 60 Est GFR (Non-Af Amer) 58 POC Glucose (mg/dL) Random Glucose 107 Calcium 9.5 Total Bilirubin 0.3 AST 25 ALT 36 Alkaline Phosphatase 59 Total Protein 6.2 L Albumin 3.8 Globulin 2.4 Albumin/Globulin Ratio 1.6 Amylase Lipase 1206 H Urine Color Yellow Urine Clarity Clear Urine pH 7.0 Ur Specific [place] 1.018 Urine Protein Negative Urine Glucose (UA) Normal Urine Ketones Negative Urine Blood Negative Urine Nitrate Negative Urine Bilirubin Negative Urine Urobilinogen Normal Ur Leukocyte Esterase Neg Urine WBC (Auto) < 1 Urine RBC (Auto) < 1 Ur Squamous Epith Cells < 1 05/28/18 05/28/18 05/28/18 06:16 06:38 11:20 WBC RBC Hgb Hct MCV MCH MCHC RDW Plt Count MPV Neut % (Auto) Lymph % (Auto) [place] % (Auto) Eos % (Auto) Baso % (Auto) Neut # (Auto) Lymph # (Auto) [place] # (Auto) Eos # (Auto) Baso # (Auto) Sodium Potassium Chloride Carbon Dioxide Anion Gap BUN Creatinine Est GFR ( Amer) Est GFR (Non-Af Amer) POC Glucose (mg/dL) 127 H 113 H Random Glucose Calcium Total Bilirubin AST ALT Alkaline Phosphatase Total Protein Albumin Globulin Albumin/Globulin Ratio Amylase 107 Lipase 168 Urine Color Urine Clarity Urine pH Ur Specific [place] Urine Protein Urine Glucose (UA) Urine Ketones Urine Blood Urine Nitrate Urine Bilirubin Urine Urobilinogen Ur Leukocyte Esterase Urine WBC (Auto) Urine RBC (Auto) Ur Squamous Epith Cells
[2018-05-28] MEDS ORDERED: SIMVASTATIN 40 MG PO SCH (22:00)
--- NOTE | 2018-05-29 06:55 | CON ---
COPIED To: Nico Haile MD Attending MD: Nico Haile MD DATE: 05/28/2018 UROLOGIC CONSULTATION. TIME OF CONSULTATION: Roughly 7:30 p.m. BRIEF HISTORY: The patient is an 82-year-old black male, well known to me, who is status post done at [facility] for an elevated PSA and positive prostate MRI on 05/09/2014. The patient was found to have a low risk prostate cancer with a Gobles 6 (3+3), only one was positive for prostate cancer, done for a PSA of 9.2. The patient has done very well postop, on tamsulosin 0.8 mg daily and finasteride 5 mg daily, massively enlarged prostate. He currently is voiding well without complaints. No dysuria, gross hematuria, renal colic, or abdominal pain. The patient recently admitted to [facility] via the ER with a complaint of poor appetite and abdominal bloating. The patient was known to have a diagnosis of possible acute pancreatitis secondary to markedly elevated lipase on admission. However, this lipase dropped significantly from over 1200 down to 100. The patient today feels much improved. No complaint of any abdominal pain. The patient originally had a total PSA of 4.84 done on 08/14/2017. The patient also has a history of thrombocytopenia secondary to his SLE medications, hydroxychloroquine sulfate. PAST MEDICAL HISTORY: He also has a past medical history of type 2 diabetes, hypertension, BPH, chronic constipation, hyperlipidemia, SLE, prostate cancer, elevated PSA, and kidney stones. He also has a prior history of urinary tract infection and ED. PAST SURGICAL HISTORY: Includes thyroidectomy, colonoscopy, gallbladder surgery for gallstones. SOCIAL HISTORY: He has no history of any tobacco use and no alcohol abuse. ALLERGIES: HE HAS NO KNOWN ALLERGIES TO ANY MEDICATION. PHYSICAL EXAMINATION: GENERAL: Today, he is a well-developed, well-nourished black male. He is alert. He is oriented. HEENT: Within normal limits. NECK: Supple. Thyroid not palpable. ABDOMEN: Soft, nondistended, nontender. No CVA tenderness and no suprapubic tenderness. GENITALIA: The patient is noncircumcised with normal glans and meatus without any rashes or lesions visualized. Testes are down bilaterally, nontender. RECTAL: Examination was not done at this time since it was done in the office recently, which shows a massively enlarged prostate, and the patient has a diagnosis of prostate cancer, low risk disease. EXTREMITIES: He has full range of motion of both upper and lower extremities. LABORATORY EVALUATION: On 05/27/2018 shows a CBC with a WBC count of 5.2, hemoglobin of 12.6, hematocrit 38.9, and platelet count of 69,000, which was low indicating thrombocytopenia. His chem profile shows a sodium of 141, potassium 3.7, chloride 105, CO2 of 31, BUN and creatinine 17 and 1.2 respectively with GFR of greater than 60. Random glucose was 107, calcium 9.5. Total bilirubin 0.3. AST 25, ALT 36. Alkaline phosphatase 359. Lipase was 1206 and B lipase today, 05/28/2018, was 168. His urinalysis was completely within normal limits, pH 7.0, specific gravity of 1.018. DIAGNOSTIC IMPRESSION: For this patient, 1. Low risk prostate cancer disease. 2. Benign prostatic hypertrophy. PLAN FOR THIS PATIENT: Just to continue on his normal BPH medications, which include tamsulosin 0.4 mg b.i.d. and finasteride 5 mg daily. If the patient's symptoms are relatively mild, the patient can decrease his Flomax to daily. The patient to follow up in the office in the next two weeks. Nico Haile MD
[2018-05-29] MEDS: (Novolin R) Insulin Human Regular 100 units/ml vial SC SCH ×3 (07:26→17:19)
[2018-05-29 08:40] LABS: BASO % 0.4 % (0.0-2.0); EOS # 0.1 K/uL (0.0-0.7); EOS % 2.3 % (0.0-4.0); HEMOGLOBIN 13.1 g/dL (12.0-18.0); LYMPH # 0.9 K/uL (1.0-4.3); LYMPH % 20.4 % (20.0-40.0); MEAN CORPUSCULAR HEMOGLOBIN 27.6 pg (27.0-31.0); MEAN CORPUSCULAR HGB CONC 32.9 g/dL (33.0-37.0); MEAN PLATELET VOLUME 10.2 fL (7.2-11.7); MONO # 0.3 K/uL (0.0-0.8); MONO % 6.7 % (0.0-10.0); NEUT # 3.1 K/uL (1.8-7.0); NEUT % 70.2 % (50.0-75.0); RBC 4.76 Mil/uL (4.40-5.90); RED CELL DISTRIBUTION WIDTH 14.5 % (11.5-14.5); WHITE BLOOD COUNT 4.4 K/uL (4.8-10.8)
[2018-05-29 09:04] LABS: ALB/GLOB RATIO 1.4 (1.0-2.1); ALBUMIN 3.6 g/dL (3.5-5.0); ALT/SGPT 30 U/L (21-72); AST/SGOT 24 U/L (17-59); BLOOD UREA NITROGEN 14 mg/dL (9-20); CALCIUM 9.4 mg/dl (8.6-10.4); GFR AFRICAN-AMERICAN > 60; GFR NON-AFRICAN AMERICAN 53
[2018-05-29] MEDS ORDERED: Pneumococcal 23-Valent Vaccine IM ONE (10:00)
[2018-05-29] MEDS: Pantoprazole 40 mg EC Tab PO SCH (10:00)
--- NOTE | 2018-05-29 11:03 | CP.PCM.CON ---
<Nick Paul - Last Filed: 05/29/18 11:02> Past Patient History - Infectious Disease Hx of Infectious Diseases: None - Past Medical History & Family History Past Medical History?: Yes - Past Social History Smoking Status: Never Smoked - CARDIAC Hx Hypercholesterolemia: Yes Hx Hypertension: Yes - PULMONARY Hx Respiratory Disorders: No - NEUROLOGICAL Hx Neurological Disorder: No - HEENT Hx HEENT Problems: No - RENAL Hx Chronic Kidney Disease: Yes Hx Kidney Stones: Yes (SURGERY DONE) - ENDOCRINE/METABOLIC Hx Endocrine Disorders: Yes Hx Diabetes Mellitus Type 2: Yes (BUT WELL CONTROLED-SO ONLY TAKES MED. READING ABOVE 150) Hx Systemic Lupus Erythematosus: Yes Other/Comment: HX: "PARTIAL(RIGHT) THYROID REMOVED AFTER AN ACCIDENT." - HEMATOLOGICAL/ONCOLOGICAL Hx Blood Disorders: Yes Other/Comment: LUPUS - INTEGUMENTARY Hx Dermatological Problems: No - MUSCULOSKELETAL/RHEUMATOLOGICAL Hx Arthritis: Yes Hx Falls: No Hx Fractures: Yes (RIGHT WRIST-CASTED ONLY) - GASTROINTESTINAL Hx Gastrointestinal Disorders: No - GENITOURINARY/GYNECOLOGICAL Hx Genitourinary Disorders: Yes Hx Prostate Problems: Yes - PSYCHIATRIC Hx Substance Use: No - SURGICAL HISTORY Hx Surgeries: Yes Hx Herniorrhaphy: Yes (6 months ago) Hx Thyroidectomy: Yes ("PARTIAL (RIGHT) THYROID REMOVED AFTER AN ACCIDENY") Other/Comment: HX: CYSTOSCOPY " TO CHECK PROSTATE AND REMOVE KIDNEY STONE." - ANESTHESIA Hx Anesthesia: Yes Hx Anesthesia Reactions: No Hx Malignant Hyperthermia: No Has any member of the family had a problem w/ anesthesia?: No Meds Allergies/Adverse Reactions: Allergies Allergy/AdvReac Type Severity Reaction Status Date / Time No Known Allergies Allergy Verified 05/27/18 19:47 - Medications Medications: Current Medications Ferrous Sulfate (Feosol) 325 mg PO DAILY [facility] Last Admin: 05/29/18 10:01 Dose: 325 mg Finasteride (Proscar) 5 mg PO DAILY [facility] Last Admin: 05/29/18 10:07 Dose: 5 mg Folic Acid (Folic Acid) 1 mg PO DAILY [facility] Last Admin: 05/29/18 10:01 Dose: 1 mg Glipizide (Glucotrol) 10 mg PO DAILY [facility] Last Admin: 05/29/18 10:00 Dose: 10 mg Hydrochlorothiazide (Microzide) 12.5 mg PO DAILY [facility] Last Admin: 05/29/18 10:00 Dose: 12.5 mg Hydroxychloroquine Sulfate (Plaquenil) 200 mg PO BID [facility] PRN Reason: Protocol Last Admin: 05/29/18 10:01 Dose: 200 mg Dextrose/Sodium Chloride (Dextrose 5%/0.45% Ns 1000 Ml) 1,000 mls @ 50 mls/hr IV .Q20H [facility] Last Admin: 05/28/18 20:36 Dose: Not Given Insulin Human Regular (Novolin R) 0 unit SC ACHS [facility] PRN Reason: Protocol Last Admin: 05/29/18 07:26 Dose: Not Given Losartan Potassium (Cozaar) 50 mg PO DAILY [facility] Last Admin: 05/29/18 10:01 Dose: 50 mg Pantoprazole Sodium (Protonix Ec Tab) 40 mg PO DAILY [facility] Last Admin: 05/29/18 10:00 Dose: 40 mg Rosuvastatin Calcium (Crestor) 10 mg PO HS [facility] Last Admin: 05/28/18 21:47 Dose: 10 mg Tamsulosin HCl (Flomax) 0.8 mg PO DAILY [facility] Last Admin: 05/29/18 10:01 Dose: 0.8 mg Results - Vital Signs Recent Vital Signs: Last Vital Signs Temp 97.9 F 05/29/18 07:00 Pulse 69 05/29/18 09:58 Resp 20 05/29/18 07:00 BP 125/66 05/29/18 09:58 Pulse Ox 96 05/29/18 07:00 - Labs Result Diagrams: 05/29/18 08:27 05/29/18 08:27 Labs: Laboratory Results - last 24 hr 05/28/18 05/28/18 05/28/18 11:20 16:03 21:23 WBC RBC Hgb Hct MCV MCH MCHC RDW Plt Count MPV Neut % (Auto) Lymph % (Auto) [place] % (Auto) Eos % (Auto) Baso % (Auto) Neut # (Auto) Lymph # (Auto) [place] # (Auto) Eos # (Auto) Baso # (Auto) Sodium Potassium Chloride Carbon Dioxide Anion Gap BUN Creatinine Est GFR ( Amer) Est GFR (Non-Af Amer) POC Glucose (mg/dL) 113 H 119 H 157 H Random Glucose Calcium Phosphorus Magnesium Total Bilirubin AST ALT Alkaline Phosphatase Total Protein Albumin Globulin Albumin/Globulin Ratio 05/29/18 05/29/18 08:27 08:27 WBC 4.4 L RBC 4.76 Hgb 13.1 Hct 40.0 MCV 84.0 MCH 27.6 MCHC 32.9 L RDW 14.5 Plt Count 64 L MPV 10.2 Neut % (Auto) 70.2 Lymph % (Auto) 20.4 [place] % (Auto) 6.7 Eos % (Auto) 2.3 Baso % (Auto) 0.4 Neut # (Auto) 3.1 Lymph # (Auto) 0.9 L [place] # (Auto) 0.3 Eos # (Auto) 0.1 Baso # (Auto) 0.0 Sodium 143 Potassium 4.0 Chloride 104 Carbon Dioxide 31 H Anion Gap 13 BUN 14 Creatinine 1.3 Est GFR ( Amer) > 60 Est GFR (Non-Af Amer) 53 POC Glucose (mg/dL) Random Glucose 128 H Calcium 9.4 Phosphorus 3.3 Magnesium 1.9 Total Bilirubin 0.5 AST 24 ALT 30 Alkaline Phosphatase 58 Total Protein 6.2 L Albumin 3.6 Globulin 2.6 Albumin/Globulin Ratio 1.4 <Nathanael Webster - Last Filed: 05/29/18 19:40> Review of Systems - Constitutional Constitutional: absent: Daytime Sleepiness, Frequent Falls, Headache, Snoring, Weakness - EENT Eyes: absent: Blurred Vision, Discharge, Requires Corrective Lenses Ears: absent: Ear Discharge, Dizziness Nose/Mouth/Throat: absent: Nasal Congestion, Bleeding Gums, Halitosis, Mouth Pain - Cardiovascular Cardiovascular: absent: Chest Pain, Claudication, Diaphoresis, Palpitations, Pedal Edema - Respiratory Respiratory: absent: Cough, Dyspnea, Hemoptysis - Gastrointestinal Gastrointestinal: absent: Belching, Change in Stool Character, Fecal Incontinence, Heartburn, Melena, Nausea - Musculoskeletal Musculoskeletal: absent: Arthralgias, Atrophy, Limited Range of Motion, Myalgias , Tingling - Integumentary Integumentary: absent: Bleeding Lesions, Hirsutism, Lesions, Pruritus, Swelling - Neurological Neurological: absent: Abnormal Hearing, Behavioral Changes, Dizziness, Lack of Coordination, Radicular Pain, Tremor, Vertigo - Psychiatric Psychiatric: absent: Anhedonia, Anxiety, Behavioral Changes, Depression, Panic Attacks - Endocrine Endocrine: absent: Polyphagia, Polyuria - Hematologic/Lymphatic Hematologic: absent: Easy Bleeding, Easy Bruising Meds - Medications Medications: Current Medications Dextrose (Glutose 15) 0 gm PO ONCE PRN; Protocol PRN Reason: Hypoglycemia Protocol Ferrous Sulfate (Feosol) 325 mg PO DAILY [facility] Last Admin: 05/29/18 10:01 Dose: 325 mg Finasteride (Proscar) 5 mg PO DAILY [facility] Last Admin: 05/29/18 10:07 Dose: 5 mg Folic Acid (Folic Acid) 1 mg PO DAILY [facility] Last Admin: 05/29/18 10:01 Dose: 1 mg Glipizide (Glucotrol) 10 mg PO DAILY [facility] Last Admin: 05/29/18 10:00 Dose: 10 mg Glucagon (Glucagen Diagnostic Kit) 0 mg IM STAT PRN; Protocol PRN Reason: Hypoglycemia Protocol Hydrochlorothiazide (Microzide) 12.5 mg PO DAILY [facility] Last Admin: 05/29/18 10:00 Dose: 12.5 mg Hydroxychloroquine Sulfate (Plaquenil) 200 mg PO BID [facility] PRN Reason: Protocol Last Admin: 05/29/18 18:10 Dose: Not Given Dextrose/Sodium Chloride (Dextrose 5%/0.45% Ns 1000 Ml) 1,000 mls @ 50 mls/hr IV .Q20H [facility] Last Admin: 05/29/18 17:19 Dose: Not Given Insulin Human Regular (Novolin R) 0 unit SC ACHS [facility] PRN Reason: Protocol Last Admin: 05/29/18 17:19 Dose: Not Given Losartan Potassium (Cozaar) 50 mg PO DAILY [facility] Last Admin: 05/29/18 10:01 Dose: 50 mg Pantoprazole Sodium (Protonix Ec Tab) 40 mg PO DAILY [facility] Last Admin: 05/29/18 10:00 Dose: 40 mg Rosuvastatin Calcium (Crestor) 10 mg PO HS [facility] Last Admin: 05/28/18 21:47 Dose: 10 mg Tamsulosin HCl (Flomax) 0.8 mg PO DAILY [facility] Last Admin: 05/29/18 10:01 Dose: 0.8 mg Results - Vital Signs Recent Vital Signs: Last Vital Signs Temp 98.7 F 05/29/18 15:15 Pulse 73 05/29/18 15:15 Resp 20 05/29/18 15:15 BP 111/66 05/29/18 15:15 Pulse Ox 99 05/29/18 15:15 - Labs Result Diagrams: 05/29/18 08:27 05/29/18 08:27 Labs: Laboratory Results - last 24 hr 05/28/18 05/28/18 05/29/18 16:03 21:23 06:23 WBC RBC Hgb Hct MCV MCH MCHC RDW Plt Count MPV Neut % (Auto) Lymph % (Auto) [place] % (Auto) Eos % (Auto) Baso % (Auto) Neut # (Auto) Lymph # (Auto) [place] # (Auto) Eos # (Auto) Baso # (Auto) Sodium Potassium Chloride Carbon Dioxide Anion Gap BUN Creatinine Est GFR ( Amer) Est GFR (Non-Af Amer) POC Glucose (mg/dL) 119 H 157 H 122 H Random Glucose Calcium Phosphorus Magnesium Total Bilirubin AST ALT Alkaline Phosphatase Total Protein Albumin Globulin Albumin/Globulin Ratio 05/29/18 05/29/18 05/29/18 08:27 08:27 12:42 WBC 4.4 L RBC 4.76 Hgb 13.1 Hct 40.0 MCV 84.0 MCH 27.6 MCHC 32.9 L RDW 14.5 Plt Count 64 L MPV 10.2 Neut % (Auto) 70.2 Lymph % (Auto) 20.4 [place] % (Auto) 6.7 Eos % (Auto) 2.3 Baso % (Auto) 0.4 Neut # (Auto) 3.1 Lymph # (Auto) 0.9 L [place] # (Auto) 0.3 Eos # (Auto) 0.1 Baso # (Auto) 0.0 Sodium 143 Potassium 4.0 Chloride 104 Carbon Dioxide 31 H Anion Gap 13 BUN 14 Creatinine 1.3 Est GFR ( Amer) > 60 Est GFR (Non-Af Amer) 53 POC Glucose (mg/dL) 55 L Random Glucose 128 H Calcium 9.4 Phosphorus 3.3 Magnesium 1.9 Total Bilirubin 0.5 AST 24 ALT 30 Alkaline Phosphatase 58 Total Protein 6.2 L Albumin 3.6 Globulin 2.6 Albumin/Globulin Ratio 1.4 05/29/18 05/29/18 05/29/18 12:43 13:09 14:35 WBC RBC Hgb Hct MCV MCH MCHC RDW Plt Count MPV Neut % (Auto) Lymph % (Auto) [place] % (Auto) Eos % (Auto) Baso % (Auto) Neut # (Auto) Lymph # (Auto) [place] # (Auto) Eos # (Auto) Baso # (Auto) Sodium Potassium Chloride Carbon Dioxide Anion Gap BUN Creatinine Est GFR ( Amer) Est GFR (Non-Af Amer) POC Glucose (mg/dL) 57 L 170 H 60 L Random Glucose Calcium Phosphorus Magnesium Total Bilirubin AST ALT Alkaline Phosphatase Total Protein Albumin Globulin Albumin/Globulin Ratio 05/29/18 05/29/18 05/29/18 14:36 14:55 16:08 WBC RBC Hgb Hct MCV MCH MCHC RDW Plt Count MPV Neut % (Auto) Lymph % (Auto) [place] % (Auto) Eos % (Auto) Baso % (Auto) Neut # (Auto) Lymph # (Auto) [place] # (Auto) Eos # (Auto) Baso # (Auto) Sodium Potassium Chloride Carbon Dioxide Anion Gap BUN Creatinine Est GFR ( Amer) Est GFR (Non-Af Amer) POC Glucose (mg/dL) 58 L 79 62 L Random Glucose Calcium Phosphorus Magnesium Total Bilirubin AST ALT Alkaline Phosphatase Total Protein Albumin Globulin Albumin/Globulin Ratio 05/29/18 05/29/18 05/29/18 16:09 16:46 18:47 WBC RBC Hgb Hct MCV MCH MCHC RDW Plt Count MPV Neut % (Auto) Lymph % (Auto) [place] % (Auto) Eos % (Auto) Baso % (Auto) Neut # (Auto) Lymph # (Auto) [place] # (Auto) Eos # (Auto) Baso # (Auto) Sodium Potassium Chloride Carbon Dioxide Anion Gap BUN Creatinine Est GFR ( Amer) Est GFR (Non-Af Amer) POC Glucose (mg/dL) 55 L 121 H 110 Random Glucose Calcium Phosphorus Magnesium Total Bilirubin AST ALT Alkaline Phosphatase Total Protein Albumin Globulin Albumin/Globulin Ratio
[2018-05-29] MEDS ORDERED: Dextrose 50% SYRINGE Inj (50 ml) ONE (12:50)
[2018-05-29] MEDS ORDERED: Glucagon Recombinant 1 mg Inj IM PRN (12:55)
[2018-05-29] MEDS ORDERED: Dextrose 50% SYRINGE Inj (50 ml) IV ONE (14:05)
[2018-05-29 16:33] VITALS: BP 111/66; PULSE 73; TEMP 98.7; O2SAT 99
[2018-05-29] MEDS: Dextrose 5%/0.45% NS 1,000 ML IV SCH (17:19)
--- NOTE | 2018-05-29 19:17 | CP.PCM.PN ---
Subjective - Date & Time of Evaluation Date of Evaluation: 05/29/18 Time of Evaluation: 19:17 - Subjective Subjective: PGY2- Progress Note for Dr. House Patient seen and examined at bedside. Patient in no acute distress. Patient reports no abdominal pain today. Patient reports passing bowels with no complaints and tolerating diet. Patient denies any fevers, chills, nausea, vomiting, chest pain, palpitations, syncopal episodes, or any other complaints. Objective - Vital Signs/Intake and Output Vital Signs (last 24 hours): Temp Pulse Resp BP Pulse Ox 98.7 F 73 20 111/66 99 05/29/18 15:15 05/29/18 15:15 05/29/18 15:15 05/29/18 15:15 05/29/18 15:15 Intake and Output: 05/29/18 05/30/18 18:59 06:59 Intake Total 880 Output Total 500 Balance 380 - Medications Medications: Current Medications Dextrose (Glutose 15) 0 gm PO ONCE PRN; Protocol PRN Reason: Hypoglycemia Protocol Ferrous Sulfate (Feosol) 325 mg PO DAILY [facility] Last Admin: 05/29/18 10:01 Dose: 325 mg Finasteride (Proscar) 5 mg PO DAILY [facility] Last Admin: 05/29/18 10:07 Dose: 5 mg Folic Acid (Folic Acid) 1 mg PO DAILY [facility] Last Admin: 05/29/18 10:01 Dose: 1 mg Glipizide (Glucotrol) 10 mg PO DAILY [facility] Last Admin: 05/29/18 10:00 Dose: 10 mg Glucagon (Glucagen Diagnostic Kit) 0 mg IM STAT PRN; Protocol PRN Reason: Hypoglycemia Protocol Hydrochlorothiazide (Microzide) 12.5 mg PO DAILY [facility] Last Admin: 05/29/18 10:00 Dose: 12.5 mg Hydroxychloroquine Sulfate (Plaquenil) 200 mg PO BID [facility] PRN Reason: Protocol Last Admin: 05/29/18 18:10 Dose: Not Given Dextrose/Sodium Chloride (Dextrose 5%/0.45% Ns 1000 Ml) 1,000 mls @ 50 mls/hr IV .Q20H [facility] Last Admin: 05/29/18 17:19 Dose: Not Given Insulin Human Regular (Novolin R) 0 unit SC ACHS [facility] PRN Reason: Protocol Last Admin: 05/29/18 17:19 Dose: Not Given Losartan Potassium (Cozaar) 50 mg PO DAILY [facility] Last Admin: 05/29/18 10:01 Dose: 50 mg Pantoprazole Sodium (Protonix Ec Tab) 40 mg PO DAILY [facility] Last Admin: 05/29/18 10:00 Dose: 40 mg Rosuvastatin Calcium (Crestor) 10 mg PO HS [facility] Last Admin: 05/28/18 21:47 Dose: 10 mg Tamsulosin HCl (Flomax) 0.8 mg PO DAILY [facility] Last Admin: 05/29/18 10:01 Dose: 0.8 mg - Labs Labs: 05/29/18 08:27 05/29/18 08:27 - Head Exam Head Exam: ATRAUMATIC, NORMAL INSPECTION, NORMOCEPHALIC - Eye Exam Eye Exam: EOMI, Normal appearance, PERRL Pupil Exam: NORMAL ACCOMODATION - ENT Exam ENT Exam: Mucous Membranes Moist, Normal Oropharynx - Respiratory Exam Respiratory Exam: Clear to Ausculation Bilateral, NORMAL BREATHING PATTERN. absent: Prolonged Expiratory Phase, Respiratory Distress - GI/Abdominal Exam GI & Abdominal Exam: Soft, Normal Bowel Sounds - Extremities Exam Extremities Exam: Full ROM, Normal Inspection. absent: Pedal Edema - Back Exam Back Exam: NORMAL INSPECTION. absent: CVA tenderness (R), paraspinal tenderness - Neurological Exam Neurological Exam: Alert, Awake, CN II-XII Intact, Oriented x3 - Psychiatric Exam Psychiatric exam: Normal Affect, Normal Mood - Skin Skin Exam: Dry, Intact, Normal Color Assessment and Plan - Assessment and Plan (Free Text) Plan: Pancreatitis, resolved Lipase 1206 on admission 05/28/18: lipase 168 heart healthy moderate consistent carb diet Patient tolerating diet Decreased Appetite/ Unintentional Weight loss colonoscopy done [address] abd/ pelvis: small dependent atelectasis at lung bases, focal pleural thickening. 4.2 cm ascending aortic aneurysm 1cm hypoattenuated lesion of L hepatic lobe near falciform ligament. hepatic tumor or fatty infiltration. enlarged lobulated prostate. renal and hepatic cysts. GI, Dr. Henao, consulted- help appreciated -Folic acid 1mg PO Daily [facility] Liver Tumor or Fatty Infiltrate found on CT abd/ pelvis GI, Dr. Henao, consulted- help appreciated HTN Losartan 50mg po daily HCTZ 12.5 mg po daily DMII Glipizide 10mg po daily ISS- Low Accuchecks achs hypoglycemia protocol HLD Crestor 10mg po daily Lupus Plaquenil 200mg po BID BPH Flomax .8mg po daily Finasteride 5mg PO Daily enlarged lobulated prostate -Urology Dr. Haile Consulted :Continue BPH medications :Follow up in next two weeks. Thrombocytopenia Platelets: 69 Heme, Onc, Dr. Paul consulted avoid medications that can cause thrombocytopenia Prophylaxis no chemical VTE prophylaxis 2/2 low platelets SCDs Protonix 40mg Daily [facility] All management per Dr. Mandeep House
--- NOTE | 2018-05-30 00:16 | CP.PCM.CON ---
History of Present Illness - History of Present Illness History of Present Illness: UROLOGY CONSULTATION Past Patient History - Infectious Disease Hx of Infectious Diseases: None - Past Medical History & Family History Past Medical History?: Yes - Past Social History Smoking Status: Never Smoked - CARDIAC Hx Hypercholesterolemia: Yes Hx Hypertension: Yes - PULMONARY Hx Respiratory Disorders: No - NEUROLOGICAL Hx Neurological Disorder: No - HEENT Hx HEENT Problems: No - RENAL Hx Chronic Kidney Disease: Yes Hx Kidney Stones: Yes (SURGERY DONE) - ENDOCRINE/METABOLIC Hx Endocrine Disorders: Yes Hx Diabetes Mellitus Type 2: Yes (BUT WELL CONTROLED-SO ONLY TAKES MED. READING ABOVE 150) Hx Systemic Lupus Erythematosus: Yes Other/Comment: HX: "PARTIAL(RIGHT) THYROID REMOVED AFTER AN ACCIDENT." - HEMATOLOGICAL/ONCOLOGICAL Hx Blood Disorders: Yes Other/Comment: LUPUS - INTEGUMENTARY Hx Dermatological Problems: No - MUSCULOSKELETAL/RHEUMATOLOGICAL Hx Arthritis: Yes Hx Falls: No Hx Fractures: Yes (RIGHT WRIST-CASTED ONLY) - GASTROINTESTINAL Hx Gastrointestinal Disorders: No - GENITOURINARY/GYNECOLOGICAL Hx Genitourinary Disorders: Yes Hx Prostate Problems: Yes - PSYCHIATRIC Hx Substance Use: No - SURGICAL HISTORY Hx Surgeries: Yes Hx Herniorrhaphy: Yes (6 months ago) Hx Thyroidectomy: Yes ("PARTIAL (RIGHT) THYROID REMOVED AFTER AN ACCIDENY") Other/Comment: HX: CYSTOSCOPY " TO CHECK PROSTATE AND REMOVE KIDNEY STONE." - ANESTHESIA Hx Anesthesia: Yes Hx Anesthesia Reactions: No Hx Malignant Hyperthermia: No Has any member of the family had a problem w/ anesthesia?: No Meds Allergies/Adverse Reactions: Allergies Allergy/AdvReac Type Severity Reaction Status Date / Time No Known Allergies Allergy Verified 05/27/18 19:47 Results - Vital Signs Recent Vital Signs: Last Vital Signs Temp 98.7 F 05/29/18 15:15 Pulse 73 05/29/18 15:15 Resp 20 05/29/18 15:15 BP 111/66 05/29/18 15:15 Pulse Ox 99 05/29/18 15:15 - Labs Result Diagrams: 05/29/18 08:27 05/29/18 08:27 Labs: Laboratory Results - last 24 hr 05/28/18 05/28/18 05/29/18 16:03 21:23 06:23 WBC RBC Hgb Hct MCV MCH MCHC RDW Plt Count MPV Neut % (Auto) Lymph % (Auto) [place] % (Auto) Eos % (Auto) Baso % (Auto) Neut # (Auto) Lymph # (Auto) [place] # (Auto) Eos # (Auto) Baso # (Auto) Sodium Potassium Chloride Carbon Dioxide Anion Gap BUN Creatinine Est GFR ( Amer) Est GFR (Non-Af Amer) POC Glucose (mg/dL) 119 H 157 H 122 H Random Glucose Calcium Phosphorus Magnesium Total Bilirubin AST ALT Alkaline Phosphatase Total Protein Albumin Globulin Albumin/Globulin Ratio 05/29/18 05/29/18 05/29/18 08:27 08:27 12:42 WBC 4.4 L RBC 4.76 Hgb 13.1 Hct 40.0 MCV 84.0 MCH 27.6 MCHC 32.9 L RDW 14.5 Plt Count 64 L MPV 10.2 Neut % (Auto) 70.2 Lymph % (Auto) 20.4 [place] % (Auto) 6.7 Eos % (Auto) 2.3 Baso % (Auto) 0.4 Neut # (Auto) 3.1 Lymph # (Auto) 0.9 L [place] # (Auto) 0.3 Eos # (Auto) 0.1 Baso # (Auto) 0.0 Sodium 143 Potassium 4.0 Chloride 104 Carbon Dioxide 31 H Anion Gap 13 BUN 14 Creatinine 1.3 Est GFR ( Amer) > 60 Est GFR (Non-Af Amer) 53 POC Glucose (mg/dL) 55 L Random Glucose 128 H Calcium 9.4 Phosphorus 3.3 Magnesium 1.9 Total Bilirubin 0.5 AST 24 ALT 30 Alkaline Phosphatase 58 Total Protein 6.2 L Albumin 3.6 Globulin 2.6 Albumin/Globulin Ratio 1.4 05/29/18 05/29/18 05/29/18 12:43 13:09 14:35 WBC RBC Hgb Hct MCV MCH MCHC RDW Plt Count MPV Neut % (Auto) Lymph % (Auto) [place] % (Auto) Eos % (Auto) Baso % (Auto) Neut # (Auto) Lymph # (Auto) [place] # (Auto) Eos # (Auto) Baso # (Auto) Sodium Potassium Chloride Carbon Dioxide Anion Gap BUN Creatinine Est GFR ( Amer) Est GFR (Non-Af Amer) POC Glucose (mg/dL) 57 L 170 H 60 L Random Glucose Calcium Phosphorus Magnesium Total Bilirubin AST ALT Alkaline Phosphatase Total Protein Albumin Globulin Albumin/Globulin Ratio 05/29/18 05/29/18 05/29/18 14:36 14:55 16:08 WBC RBC Hgb Hct MCV MCH MCHC RDW Plt Count MPV Neut % (Auto) Lymph % (Auto) [place] % (Auto) Eos % (Auto) Baso % (Auto) Neut # (Auto) Lymph # (Auto) [place] # (Auto) Eos # (Auto) Baso # (Auto) Sodium Potassium Chloride Carbon Dioxide Anion Gap BUN Creatinine Est GFR ( Amer) Est GFR (Non-Af Amer) POC Glucose (mg/dL) 58 L 79 62 L Random Glucose Calcium Phosphorus Magnesium Total Bilirubin AST ALT Alkaline Phosphatase Total Protein Albumin Globulin Albumin/Globulin Ratio 05/29/18 05/29/18 05/29/18 16:09 16:46 18:47 WBC RBC Hgb Hct MCV MCH MCHC RDW Plt Count MPV Neut % (Auto) Lymph % (Auto) [place] % (Auto) Eos % (Auto) Baso % (Auto) Neut # (Auto) Lymph # (Auto) [place] # (Auto) Eos # (Auto) Baso # (Auto) Sodium Potassium Chloride Carbon Dioxide Anion Gap BUN Creatinine Est GFR ( Amer) Est GFR (Non-Af Amer) POC Glucose (mg/dL) 55 L 121 H 110 Random Glucose Calcium Phosphorus Magnesium Total Bilirubin AST ALT Alkaline Phosphatase Total Protein Albumin Globulin Albumin/Globulin Ratio Assessment & Plan - Assessment and Plan (Free Text) Assessment: IMP: BPH Voiding Sx Diminished appetite Full note tbd Thank you. YS - Date & Time Date: 05/29/18 Time: 10:15
[2018-05-30 13:53] LABS: TOTAL PSA 4.2 ng/mL (< or = 4.0)
== END 2018-05-29 20:26 | disposition left against medical advice (07) | DRG 439 ==
LOC: SUPCPDRO 19:41 → C.ER 19:41 → C.9E 22:51 → C.6T 05-28 00:08
PROVIDERS: ADMIT Internal Medicine Nephrology; ATTEND Internal Medicine Nephrology
DX: K85.90 Acute pancreatitis without necrosis or infection, unspecified (principal); J98.11 Atelectasis; C61 Malignant neoplasm of prostate; D69.6 Thrombocytopenia, unspecified; E11.22 Type 2 diabetes mellitus with diabetic chronic kidney disease; E78.00 Pure hypercholesterolemia, unspecified; I12.9 Hypertensive chronic kidney disease with stage 1 through stage 4 chronic kidney disease, or unspecified chronic kidney disease; M32.9 Systemic lupus erythematosus, unspecified; N18.9 Chronic kidney disease, unspecified; R63.4 Abnormal weight loss; I71.2 Thoracic aortic aneurysm, without rupture; N40.0 Benign prostatic hyperplasia without lower urinary tract symptoms

== ENCOUNTER 2018-07-05 08:07 | Day surgery (SDC) | payer MEDICARE ==
[2018-07-05] MEDS ORDERED: Lactated Ringer's 1,000 ML IV ONE ×2 (09:52)
[2018-07-05] MEDS ORDERED: Propofol 10 mg/ml Inj (20 ML) ONE (09:54)
[2018-07-05 10:51] VITALS: TEMP 97.2; O2SAT 100
[2018-07-05 11:05] VITALS: PULSE 50
[2018-07-05 11:19] VITALS: BP 148/72; RESP 16
== END 2018-07-05 12:00 | disposition home or self-care (01) ==
LOC: C.ENDO 08:07
PROVIDERS: ATTEND Internal Medicine Gastroenterology
DX: Z12.11 Encounter for screening for malignant neoplasm of colon (principal); R63.4 Abnormal weight loss; K44.9 Diaphragmatic hernia without obstruction or gangrene; K29.70 Gastritis, unspecified, without bleeding; D12.2 Benign neoplasm of ascending colon; D12.5 Benign neoplasm of sigmoid colon; K64.8 Other hemorrhoids
CPT/HCPCS: 43239; 45385; 82948; 88305; J2704; J7120